=== PATIENT | female | born 1970 | race Caucasian/White ===

== ENCOUNTER 2018-03-26 11:30 | Emergency (ER) | payer OTHER ==
[~2018-03-26] VITALS: Ht 160 cm; Wt 69.0 kg
[~2018-03-26 11:30] MED LIST: BACTRIM DS TAB1 EACH PO; BENADRYL25 MG PO; CELEXA40 MG PO; DOXYCYCLINE 10100 MG PO; ERYTHROMYCIN E3.5 G3 OPHTHALMIC; FLEXERIL PO; HYDROCODONE-AP1 EAC6 PO; IBUPROFEN 800800 M1 PO; KEFLEX500 MG PO; NAPROSYN500 MG PO; NORCO 5-325 TA1 EAC1 PO; NORCO 5-325 TA1 EACH PO; ONDANSETRON HCL4 M2 PO; OXYCODONE HCL 55 MG PO; PREDNISONE 20 M20 MG PO; PROMETH-CODEIN 65 ML PO; PROVENTIL HFA6.7 G1 INH; TRAMADOL 50 MG50 MG PO
[2018-03-26] MEDS ORDERED: VITAMIN D2000 UNIT PO (11:52)
[2018-03-26] MEDS ORDERED: IRON325 PO (11:52)
[2018-03-26] MEDS ORDERED: VITAMIN C500 M1 PO (11:52)
[2018-03-26] MEDS ORDERED: PROMETHAZINE V473 ML PO (13:11)
[2018-03-26] MEDS ORDERED: PROAIR HFA8.5 GM INH (13:11)
[2018-03-26] MEDS ORDERED: ZPAK PO (13:11)
[2018-03-26] MEDS ORDERED: TESSALON PERLE100 MG PO (13:11)
[2018-03-26] MEDS ORDERED: MEDROLDOSEPACK PO (13:11)
[2018-03-26 13:26] VITALS: BP 161/101
== END 2018-03-26 13:27 | disposition home or self-care (01) ==
LOC: M.ERS 11:30
DX: J20.9 Acute bronchitis, unspecified (principal); F41.9 Anxiety disorder, unspecified; F32.9 Major depressive disorder, single episode, unspecified; Z85.3 Personal history of malignant neoplasm of breast; Z98.890 Other specified postprocedural states

== ENCOUNTER 2018-08-18 15:29 | Emergency (ER) | payer OTHER ==
[~2018-08-18] VITALS: Ht 157.5 cm; Wt 70.3 kg
[~2018-08-18 15:29] MED LIST changes: +IRON325 PO; +MEDROLDOSEPACK PO; +PROAIR HFA8.5 GM INH; +PROMETHAZINE V473 ML PO; +TESSALON PERLE100 MG PO; +VITAMIN C500 M1 PO; +VITAMIN D2000 UNIT PO; +ZPAK PO
[2018-08-18 16:22] LABS: ABSOLUTE BASOPHILS 0.1 thou/uL (0.0-0.2); ABSOLUTE EOSINOPHILS 0.1 thou/uL (0.0-0.7); ABSOLUTE LYMPHOCYTES 4.1 thou/uL (0.8-5.3); ABSOLUTE MONOCYTES 0.8 thou/uL (0.0-1.2); ABSOLUTE NEUTROPHILS 6.9 thou/uL (1.6-8.1); BASOPHILS 0.6 %; EOSINOPHILS 0.8 %; HEMATOCRIT 40.5 % (37.0-47.0); LYMPHOCYTES 34.3 %; MCH 35.8 pg (26.0-34.0); MCHC 34.6 g/dL (28.0-37.0); MCV 103.5 fL (80.0-100.0); MONOCYTES 6.5 %; MPV 6.8 fl. (7.2-11.1); NUCLEATED RBCS 0 /100WBC; PLATELET COUNT* 312 thou/uL (150-400); POLYS 57.8 %; RBC 3.91 mil/uL (4.20-5.00); RDW-CV 14.4 % (10.5-14.5); WBC 11.9 thou/uL (4.0-11.0)
[2018-08-18] MEDS ORDERED: TRAMADOL 50 MG50 MG PO (16:52)
[2018-08-18] MEDS ORDERED: KEFLEX500 M1 PO (16:52)
[2018-08-18] MEDS ORDERED: BACTRIM DS TAB1 EACH PO (16:52)
[2018-08-18 17:05] VITALS: BP 145/100
== END 2018-08-18 17:05 | disposition home or self-care (01) ==
LOC: M.ERS 15:29
PROVIDERS: Nurse Practitioner Psychiatric/Mental Health
DX: L03.114 Cellulitis of left upper limb (principal); F32.9 Major depressive disorder, single episode, unspecified; F41.9 Anxiety disorder, unspecified; Z98.890 Other specified postprocedural states; Z88.8 Allergy status to other drugs, medicaments and biological substances; Z85.3 Personal history of malignant neoplasm of breast

== ENCOUNTER 2018-10-02 15:57 | Inpatient (IN) | payer OTHER ==
[~2018-10-02] VITALS: Ht 160 cm; Wt 67.6 kg
--- NOTE | ~2018-10-02 | CON ---
[address] [address] CONSULTATION Name: TRACY SANDOVAL Room: [address] IN M.R.#: [id number] Admission: 10/02/18 Attend Phys: Jatinder Santo Discharge: 10/08/18 Date of : 74 Report #: [id number] THIS REPORT FOR: //name// CC: Dr. Vladislav PORTER physician/PCP Leandro Johnson DICTATED BY: Mel Zimmerman [facility] DATE OF SERVICE: 10/08/2018 Please note at the time of this dictation, the patient was seen and physically examined by myself. REASON FOR CONSULTATION: Pancreatitis. HISTORY OF PRESENT ILLNESS: This 48-year-old female who started having progressively lower abdominal pain, which began on the morning of admission and continued to worsen. With all of that, when she was admitted to the hospital, her lipase level was over [address] showed diffuse peripancreatic stranding with possible ileus versus enteritis. Since being admitted, she is tolerating now a soft low residue diet without any issues. Her abdominal discomfort is minimal and she is wanting to go home. The patient also mentions that she has had a 1-year history of diarrhea in which she would have some nocturnal urgency at night and then also upon arising where she may have 4 or 5 very small stools that were very mucousy in consistency, but no bright red blood or melena noted and if she ate then she would have very loose stools afterwards throughout the day. However, since being here in the hospital, her diarrhea has subsided and she has not had a bowel movement for several days or that urgency to go to the bathroom. MEDICATIONS FROM HOME: Vitamin D, ferrous sulfate and citalopram. ALLERGIES: INCLUDE TORADOL AND DARVOCET. FAMILY HISTORY: Negative for any GI or female cancers. SOCIAL HISTORY: She has smoked less than a pack a day for 32 years. Alcohol use regularly at least a shot a day and on other occasions significantly more than a shot a day. This has been going on since age 39. She denies any recreational drug use; however, she did test positive for benzos and meth. PAST MEDICAL HISTORY: Breast cancer in her 20s with lumpectomy and radiation, anxiety, depression. PAST SURGICAL HISTORY: D and C, , [place] [address] CONSULTATION Name: TRACY SANDOVAL Room: [address]#: [id number] Admission: 10/02/18 Attend Phys: Jatinder Santo Discharge: 10/08/18 Date of : 74 Report #: [id number] lumpectomy. REVIEW OF SYSTEMS: Twelve-point review of systems is essentially negative except what is mentioned in the HPI. PHYSICAL EXAMINATION: VITAL SIGNS: Temperature 36.7, pulse 58, respirations 16, blood pressure 154/87. HEART: Regular rate and rhythm. LUNGS: Clear. ABDOMEN: Soft, positive bowel sounds in all 4 quadrants with just very mild tenderness noted in the upper quadrants. LABORATORY DATA: Hemoglobin 11.3, white count 8.1, platelets 336. PT 10.8, INR 1.1. Lipase on admission was 1900, it is down to 901. GFR was 133. LFTs: Total bilirubin 0.2, alkaline phosphatase 140, ALT 26, AST is 22. CT on admission showed diffuse peripancreatic stranding and possible ileus versus enteritis which has since resolved. IMPRESSION: 1. Abdominal pain, resolving. 2. Acute pancreatitis, improving. 3. Elevated alkaline phosphatase. 4. Diarrhea for 1 year and has since resolved since admission. 5. Alcohol abuse. 6. History of breast cancer. PLAN: 1. We will check a GGTP today before she leaves. 2. Office visit and we will set her up for a colonoscopy as an outpatient. 3. No GI intervention at this time and okay for the patient to be discharged. Thank you for allowing us to participate in this patient's care. Please do not hesitate to call with any questions in regard to this consult. By: [id number] MD /demetra
[~2018-10-02 15:57] MED LIST changes: +KEFLEX500 M1 PO
[2018-10-02 16:11] VITALS: BP 156/98
[2018-10-02] MEDS ORDERED: CELEXA20 MG PO (16:13)
[2018-10-02 16:39] LABS: ABSOLUTE BASOPHILS 0.1 thou/uL (0.0-0.2); ABSOLUTE LYMPHOCYTES 1.6 thou/uL (0.8-5.3); ABSOLUTE MONOCYTES 0.5 thou/uL (0.0-1.2); ABSOLUTE NEUTROPHILS 5.8 thou/uL (1.6-8.1); BASOPHILS 0.7 %; EOSINOPHILS 0.3 %; HEMATOCRIT 39.7 % (37.0-47.0); HEMOGLOBIN 14.1 gm/dL (12.0-15.0); LYMPHOCYTES 19.6 %; MCH 36.9 pg (26.0-34.0); MCHC 35.4 g/dL (28.0-37.0); MCV 104.2 fL (80.0-100.0); MONOCYTES 6.5 %; MPV 7.1 fl. (7.2-11.1); NUCLEATED RBCS 0 /100WBC; PLATELET COUNT* 298 thou/uL (150-400); POLYS 72.9 %; RBC 3.81 mil/uL (4.20-5.00); RDW-CV 14.6 % (10.5-14.5); WBC 7.9 thou/uL (4.0-11.0)
[2018-10-02 16:48] LABS: CALCIUM 8.7 mg/dL (8.5-10.1); CREATININE 0.7 mg/dL (0.6-1.3)
[2018-10-02 16:52] LABS: POTASSIUM 2.6 mmol/L (3.5-5.1)
[2018-10-02 16:53] LABS: TOTAL BILIRUBIN 0.3 mg/dL (<0.1-1.0); TOTAL PROTEIN 6.2 g/dL (6.4-8.2)
[2018-10-02 17:20] LABS: SALICYLATE 12.7 mg/dL (2.8-20.0)
[2018-10-02 20:10] LABS: URINE BILIRUBIN NEGATIVE (Negative); URINE BLOOD NEGATIVE (Negative); URINE CLARITY CLEAR; URINE COLOR YELLOW; URINE GLUCOSE-RANDOM NEGATIVE (Negative); URINE KETONES NEGATIVE (Negative); URINE LEUKOCYTES-REFLEX NEGATIVE (Negative); URINE NITRITE-REFLEX NEGATIVE (Negative); URINE PROTEIN NEGATIVE (Negative); URINE SPECIFIC GRAVITY <= 1.005 (1.005-1.030); URINE UROBILINOGEN 0.2 E.U./dl (0.2-1.0)
[2018-10-02 20:19] LABS: AMP/METHAMP POSITIVE (Negative); BARBITURATES Negative (Negative); BENZODIAZEPINES POSITIVE (Negative); COCAINE Negative (Negative); METHADONE Negative (Negative); OPIATES Negative (Negative); PCP Negative (Negative); THC Negative (Negative)
[2018-10-02 21:15] VITALS: BP 147/85
[2018-10-02 21:30] VITALS: BP 148/100
[2018-10-03 02:31] LABS: INR 1.1; PROTIME 10.8 Seconds (9.20-11.50)
[2018-10-03 02:33] LABS: CALCIUM 7.4 mg/dL (8.5-10.1); MAGNESIUM 1.4 mg/dL (1.8-2.4); PHOSPHORUS* 2.6 mg/dL (2.5-4.9)
[2018-10-03 04:00] VITALS: BP 129/98
[2018-10-03 08:03] VITALS: BP 120/78
[2018-10-03 09:14] LABS: MAGNESIUM 2.2 mg/dL (1.8-2.4); POTASSIUM 3.5 mmol/L (3.5-5.1)
--- NOTE | 2018-10-03 11:11 | EKG ---
[place] [address] ELECTROCARDIOGRAM REPORT Name: TRACY SANDOVAL Room: [address] ADM IN .R.#: [id number] Admission: 10/02/18 Attend Phys: Jatinder Santo Discharge: Date of : 74 Report #: [id number] THIS REPORT FOR: //name// [facility] ED Test Date: 2018-10-02 Test Time: 17:58:46 Pat Name: TRACY SANDOVAL Department: Room: [facility] Gender: F Roof Tiler: JONATHON : 1970 Requested By: Sherry Carey Order Number: [id number] MD: Michoacano Dumont Measurements Intervals [place] Rate: 90 P: 61 [place]: 157 QRS: 20 QRSD: 102 T: 55 QT: 408 QTc: 500 Interpretive Statements Sinus rhythm Borderline prolonged QT interval No previous ECG available for comparison Electronically Signed On 10-03-2018 11:11:31 CDT by Michoacano Dumont [email or web address] <ELECTRONICALLY SIGNED> By: Michoacano Dumont MD, [facility] 10/03/18 1111 1758 [id number] Michoacano Dumont MD, FACC /EPI
[2018-10-03 12:23] VITALS: BP 137/97
[2018-10-03 16:19] VITALS: BP 135/75
[2018-10-03 19:50] VITALS: BP 144/91
--- NOTE | 2018-10-03 20:47 | H ---
[address] [address] HISTORY AND PHYSICAL Name: TRACY SANDOVAL Room: [address] IN .#: [id number] Admission: 10/02/18 Attend Phys: Jatinder Santo Discharge: Date of : 74 Report #: [id number] THIS REPORT FOR: //name// CC: GERMAN physician/PCP Leandro Johnson DATE OF SERVICE: 10/03/2018 CHIEF COMPLAINT: Abdominal pain. HISTORY OF PRESENT ILLNESS: The patient is a 48-year-old female who has history of alcohol abuse and drinks daily. She works as a human resources professional. She tells me that she drinks a shot of hard liquor every day. She does not consider herself alcoholic but now rethinking that. She complained of abdominal pain that started yesterday. It was bad enough that she did not go to work. She finally came into the Emergency Department, had labs drawn and noted to have elevated lipase, so she was admitted for pancreatitis. She continues to have some abdominal pain. Pain medication is working for her right now. PAST MEDICAL HISTORY: She has breast cancer and had a biopsy and had chemo and radiation. Denies any history of hypertension, diabetes, CAD. PAST SURGICAL HISTORY: section, breast biopsy. FAMILY HISTORY: Hypoglycemia. There is no history of CAD, hypertension in the family. SOCIAL HISTORY: The patient lives by herself. She works in the [employer] as a human resources professional. She does drink alcohol every day. She also smokes a pack of cigarettes per day. REVIEW OF SYSTEMS: The patient denies any fever or chills. She denies any coughing or cold symptoms. She denies any nausea or vomiting. She does have abdominal pains and as mentioned, she has no bloody stools, no hematemesis. A 12-point review of system unremarkable as mentioned above. MEDICATIONS: Medications that she takes include ferrous sulfate 325 mg daily, Citalopram 20 mg daily. ALLERGIES: DARVOCET and KETOROLAC. PHYSICAL EXAMINATION: VITAL SIGNS: Temperature is 36.7, heart rate of 71, respiratory rate 16, blood pressure 137/97, 95% on room air. GENERAL: The patient is alert. She is oriented x 3. Initially, she was sleepy, but arousable and then we started talking and she was more awake, not in acute respiratory distress. HEENT: Normocephalic, atraumatic. Nares patent. Clear pharynx. NECK: Supple neck. No lymphadenopathy. CARDIOVASCULAR: [place] [address] HISTORY AND PHYSICAL Name: TRACY SANDOVAL Room: [address] IN [facility]#: [id number] Admission: 10/02/18 Attend Phys: Jatinder Santo Discharge: Date of : 74 Report #: [id number] rate, regular rhythm. No murmurs noted. RESPIRATORY: Clear to auscultation bilaterally. No crackles. GASTROINTESTINAL: Abdomen is soft. She does have tenderness in the epigastric area. GENITOURINARY: Deferred. MUSCULOSKELETAL: Fair strength. NEUROLOGIC: Grossly normal. PSYCHIATRIC: The patient is calm and good. LABORATORY DATA: Reviewed and CBC showed a white count of 7.9, hemoglobin is 14.1, platelet is 298,000, hematocrit is 39.7, MCV is 104.2. INR is 1.1. Chemistry showed sodium of 139, potassium is 3.5, chloride 101, bicarbonate is 23, anion gap 15, BUN 7, creatinine 7, glucose is 134, lactic acid is 1.8, calcium 7.4, phosphorus 2.6, magnesium is 2.2, GGT is 9.09, AST 87, ALT 73, alkaline phosphatase is 238. Ammonia level is 18. Troponin is 0.06, total protein is 6.2, albumin is 3. Amylase 76. Lipase is 1943. Vitamin B12 is 83. Folate 16.1. TSH is 2.535, free T4 0.72, free T3 3.1. UA is negative. Toxicology showed acetaminophen level low, positive amphetamine and benzos. IMAGING STUDIES: Abdomen CAT scan showed findings suggestive of acute pancreatitis. No peripancreatic fluid collections identified. These findings are suggestive of mild small bowel ileus versus mild nonspecific enteritis, small left ovarian cyst, hepatomegaly with diffuse hepatic steatosis. IMPRESSION: The patient is a 48-year-old female admitted in the hospital for 1. Acute pancreatitis secondary to alcohol use. 2. Alcohol withdrawal. 3. 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 4. Hypomagnesemia. 5. Possible polysubstance abuse. PLAN: The patient will be admitted. I expect this patient is going to be here more than 2 midnights. We will continue n.p.o. as patient is still having abdominal pain. Continue pain meds. We will continue to hydrate her. We will follow her labs in the morning. She denies any illicit drug use; however, she was positive for benzos and methamphetamine on admission. Discussed with the patient regarding code status and she is a full code. <ELECTRONICALLY SIGNED> By: Jamaica Figueredo MD 10/03/18 2047 1229 [id number] Figueredo MD /demetra
[2018-10-04] VITALS: BP 124/76
[2018-10-04 04:00] VITALS: BP 127/79
[2018-10-04 05:02] LABS: ALBUMIN 2.1 g/dL (3.4-5.0); CREATININE 0.5 mg/dL (0.6-1.3); TOTAL BILIRUBIN 0.5 mg/dL (<0.1-1.0); TOTAL PROTEIN 4.9 g/dL (6.4-8.2)
[2018-10-04 07:30] VITALS: BP 147/88
[2018-10-04 12:00] VITALS: BP 133/88
[2018-10-04 18:16] VITALS: BP 128/92
[2018-10-04 20:00] VITALS: BP 136/98
[2018-10-05] VITALS: BP 142/99
[2018-10-05 04:00] VITALS: BP 133/92
[2018-10-05 07:50] VITALS: BP 159/98
[2018-10-05 12:00] VITALS: BP 148/92
[2018-10-05 17:17] VITALS: BP 132/84
[2018-10-05 20:00] VITALS: BP 106/98
[2018-10-06] VITALS: BP 168/98
[2018-10-06 04:00] VITALS: BP 137/80
[2018-10-06 05:39] LABS: ALBUMIN 2.4 g/dL (3.4-5.0); CALCIUM 8.1 mg/dL (8.5-10.1); CREATININE 0.5 mg/dL (0.6-1.3); POTASSIUM 3.7 mmol/L (3.5-5.1); TOTAL BILIRUBIN 0.3 mg/dL (<0.1-1.0); TOTAL PROTEIN 5.4 g/dL (6.4-8.2)
[2018-10-06 08:00] VITALS: BP 148/97
[2018-10-06 17:31] VITALS: BP 142/88
[2018-10-06 20:00] VITALS: BP 148/81
[2018-10-07] VITALS: BP 158/98
[2018-10-07 04:00] VITALS: BP 121/85
[2018-10-07 05:10] LABS: HEMATOCRIT 31.3 % (37.0-47.0); HEMOGLOBIN 10.9 gm/dL (12.0-15.0); MCH 36.5 pg (26.0-34.0); MCHC 34.8 g/dL (28.0-37.0); MCV 104.8 fL (80.0-100.0); MPV 7.4 fl. (7.2-11.1); RBC 2.99 mil/uL (4.20-5.00); RDW-CV 14.5 % (10.5-14.5); WBC 8.7 thou/uL (4.0-11.0)
[2018-10-07 05:25] LABS: ALBUMIN 2.1 g/dL (3.4-5.0); CALCIUM 8.4 mg/dL (8.5-10.1); CREATININE 0.6 mg/dL (0.6-1.3); MAGNESIUM 1.7 mg/dL (1.8-2.4); POTASSIUM 3.2 mmol/L (3.5-5.1); TOTAL BILIRUBIN 0.3 mg/dL (<0.1-1.0); TOTAL PROTEIN 5.6 g/dL (6.4-8.2)
[2018-10-07 07:30] VITALS: BP 173/97
[2018-10-07 13:00] VITALS: BP 156/107
[2018-10-07 18:09] LABS: MAGNESIUM 1.9 mg/dL (1.8-2.4); POTASSIUM 3.5 mmol/L (3.5-5.1)
[2018-10-07 19:40] VITALS: BP 157/96
[2018-10-08] VITALS: BP 158/98
[2018-10-08 04:09] VITALS: BP 146/87
[2018-10-08 05:06] LABS: HEMATOCRIT 32.9 % (37.0-47.0); HEMOGLOBIN 11.3 gm/dL (12.0-15.0); MCH 36.5 pg (26.0-34.0); MCHC 34.3 g/dL (28.0-37.0); MCV 106.5 fL (80.0-100.0); MPV 7.5 fl. (7.2-11.1); RBC 3.09 mil/uL (4.20-5.00); RDW-CV 14.7 % (10.5-14.5); WBC 8.1 thou/uL (4.0-11.0)
[2018-10-08 05:15] LABS: ALBUMIN 2.1 g/dL (3.4-5.0); CALCIUM 8.7 mg/dL (8.5-10.1); CREATININE 0.5 mg/dL (0.6-1.3); MAGNESIUM 1.8 mg/dL (1.8-2.4); POTASSIUM 3.7 mmol/L (3.5-5.1); TOTAL BILIRUBIN 0.2 mg/dL (<0.1-1.0); TOTAL PROTEIN 5.7 g/dL (6.4-8.2)
[2018-10-08 08:45] VITALS: BP 154/87
[2018-10-08 12:00] VITALS: BP 150/93; BP 154/87
[2018-10-08] MEDS ORDERED: PEPCID20 MG PO (12:06)
[2018-10-08] MEDS ORDERED: NICOTINE TRANSD14 M1 TRANSDERM (12:11)
[2018-10-08] MEDS ORDERED: [UNRECOGNIZED DRUG - OTHER] PO (12:12)
[2018-10-08] MEDS ORDERED: VITAMIN B-1100 M1 PO (12:13)
== END 2018-10-08 13:00 | disposition home or self-care (01) | DRG 438 ==
LOC: M.ERS 15:57 → M.TBA-ER 18:22 → M.2W 18:22
PROVIDERS: Family Medicine; Internal Medicine; Nurse Practitioner Family; Nurse Practitioner Psychiatric/Mental Health; ADMIT Internal Medicine
DX: K85.20 Alcohol induced acute pancreatitis without necrosis or infection (principal); E43 Unspecified severe protein-calorie malnutrition; F10.239 Alcohol dependence with withdrawal, unspecified; K56.7 Ileus, unspecified; K52.9 Noninfective gastroenteritis and colitis, unspecified; E87.6 Hypokalemia; F43.10 Post-traumatic stress disorder, unspecified; F32.9 Major depressive disorder, single episode, unspecified; E83.42 Hypomagnesemia; F41.9 Anxiety disorder, unspecified; I25.10 Atherosclerotic heart disease of native coronary artery without angina pectoris; Y90.9 Presence of alcohol in blood, level not specified; Z98.891 History of uterine scar from previous surgery; Z85.3 Personal history of malignant neoplasm of breast; Z86.14 Personal history of Methicillin resistant Staphylococcus aureus infection; Z88.8 Allergy status to other drugs, medicaments and biological substances; Z92.3 Personal history of irradiation; Z92.21 Personal history of antineoplastic chemotherapy; Z68.26 Body mass index [BMI] 26.0-26.9, adult

== ENCOUNTER 2018-12-21 11:29 | Emergency (ER) | payer OTHER ==
[~2018-12-21] VITALS: Ht 157.5 cm; Wt 64.1 kg
[~2018-12-21 11:29] MED LIST changes: +CELEXA20 MG PO; +NICOTINE TRANSD14 M1 TRANSDERM; +PEPCID20 MG PO; +VITAMIN B-1100 M1 PO; +[UNRECOGNIZED DRUG - OTHER] PO
[2018-12-21 12:11] LABS: ABSOLUTE EOSINOPHILS 0.1 thou/uL (0.0-0.7); ABSOLUTE LYMPHOCYTES 2.6 thou/uL (0.8-5.3); ABSOLUTE MONOCYTES 0.5 thou/uL (0.0-1.2); ABSOLUTE NEUTROPHILS 5.9 thou/uL (1.6-8.1); BASOPHILS 0.4 %; EOSINOPHILS 0.8 %; HEMATOCRIT 40.8 % (37.0-47.0); HEMOGLOBIN 13.9 gm/dL (12.0-15.0); LYMPHOCYTES 28.6 %; MCHC 34.1 g/dL (28.0-37.0); MCV 99.7 fL (80.0-100.0); NUCLEATED RBCS 0 /100WBC; PLATELET COUNT* 322 thou/uL (150-400); POLYS 64.2 %; RBC 4.09 mil/uL (4.20-5.00); RDW-CV 15.9 % (10.5-14.5); WBC 9.1 thou/uL (4.0-11.0)
[2018-12-21 12:18] LABS: ANION GAP 10 mmol/L (7-16); APTT 25.6 Seconds (25.0-31.3); BUN 9 mg/dL (7-18); CALCIUM 7.9 mg/dL (8.5-10.1); CHLORIDE 108 mmol/L (98-107); CO2 26 mmol/L (21-32); CREATININE 0.6 mg/dL (0.6-1.3); GLUCOSE 111 mg/dL (70-99); INR 1.1; PROTIME 11.4 Seconds (9.20-11.50); SODIUM 144 mmol/L (136-145)
[2018-12-21 12:27] LABS: ALBUMIN 2.9 g/dL (3.4-5.0); ALKALINE PHOSPHATASE 90 U/L (46-116); LIPASE 87 U/L (73-393); SGOT 36 U/L (15-37); SGPT 37 U/L (30-65); TOTAL BILIRUBIN 0.2 mg/dL (<0.1-1.0); TROPONIN-I LEVEL <0.06 ng/mL (<0.06)
[2018-12-21] MEDS ORDERED: ONDANSETRON HCL4 M2 PO (12:55)
[2018-12-21] MEDS ORDERED: BACTRIM DS TAB1 EACH PO (12:58)
[2018-12-21] MEDS ORDERED: KEFLEX500 M1 PO (12:58)
[2018-12-21 13:50] VITALS: BP 127/80
--- NOTE | 2018-12-23 09:29 | EKG ---
[place] [address] ELECTROCARDIOGRAM REPORT Name: TRACY SANDOVAL Room: [facility]#: [id number] Admission: 12/21/18 Attend Phys: Discharge: 12/21/18 Date of : 74 Report #: [id number] THIS REPORT FOR: //name// [facility] ED Test Date: 2018-12-21 Test Time: 12:09:46 Pat Name: TRACY SANDOVAL Department: Room: Gender: F Legal Summer Intern: Graham OLVERA : 1970 Requested By: Sherry Carey Order Number: [id number] MD: Antony Le Measurements Intervals [place] Rate: 84 P: 58 FL: 145 QRS: -6 QRSD: 100 T: 52 QT: 403 QTc: 477 Interpretive Statements Sinus rhythm Compared to ECG 10/02/2018 17:58:46 No significant changes Electronically Signed On 12-23-2018 9:29:05 CDT by Antony Le [email or web address] <ELECTRONICALLY SIGNED> By: Antony Le MD, [facility] 12/23/18 0929 1209 1209 Antony Le MD, FACC /EPI
== END 2018-12-21 13:50 | disposition home or self-care (01) ==
LOC: M.ERS 11:29
PROVIDERS: Nurse Practitioner Family
DX: F10.220 Alcohol dependence with intoxication, uncomplicated (principal); R10.9 Unspecified abdominal pain; L03.114 Cellulitis of left upper limb; E87.6 Hypokalemia; R94.5 Abnormal results of liver function studies; F41.9 Anxiety disorder, unspecified; F32.9 Major depressive disorder, single episode, unspecified; M19.90 Unspecified osteoarthritis, unspecified site; Z85.3 Personal history of malignant neoplasm of breast; Z86.14 Personal history of Methicillin resistant Staphylococcus aureus infection; Z98.890 Other specified postprocedural states; Z88.6 Allergy status to analgesic agent

== ENCOUNTER 2019-01-08 17:38 | Emergency (ER) | payer OTHER ==
[~2019-01-08] VITALS: Ht 157.5 cm; Wt 59.0 kg
[2019-01-08] MEDS ORDERED: ADDERALL 30 MG30 MG PO (17:47)
[2019-01-08] MEDS ORDERED: KLOR-CON 1010 MEQ PO (17:48)
[2019-01-08 18:56] VITALS: BP 148/88
== END 2019-01-08 18:58 | disposition home or self-care (01) ==
LOC: M.ERS 17:38
DX: A54.9 Gonococcal infection, unspecified (principal); M19.90 Unspecified osteoarthritis, unspecified site; F41.9 Anxiety disorder, unspecified; F32.9 Major depressive disorder, single episode, unspecified; F17.200 Nicotine dependence, unspecified, uncomplicated; Z86.14 Personal history of Methicillin resistant Staphylococcus aureus infection; Z88.6 Allergy status to analgesic agent; Z85.3 Personal history of malignant neoplasm of breast; Z98.890 Other specified postprocedural states

== ENCOUNTER 2019-02-05 17:24 | Emergency (ER) | payer OTHER ==
[~2019-02-05] VITALS: Ht 157.5 cm; Wt 56.7 kg
[~2019-02-05 17:24] MED LIST changes: +ADDERALL 30 MG30 MG PO; +KLOR-CON 1010 MEQ PO
[2019-02-05] MEDS ORDERED: AUGMENTIN 875-1 EACH PO (21:10)
[2019-02-05] MEDS ORDERED: IMOVAX RABIE2.5 UNI1 IM (21:10)
[2019-02-05 21:32] VITALS: BP 145/99
== END 2019-02-05 21:44 | disposition home or self-care (01) ==
LOC: M.ERS 17:24
DX: M70.22 Olecranon bursitis, left elbow (principal); S50.312A Abrasion of left elbow, initial encounter; S40.811A Abrasion of right upper arm, initial encounter; S60.311A Abrasion of right thumb, initial encounter; S60.410A Abrasion of right index finger, initial encounter; S80.812A Abrasion, left lower leg, initial encounter; S80.811A Abrasion, right lower leg, initial encounter; L53.9 Erythematous condition, unspecified; F17.200 Nicotine dependence, unspecified, uncomplicated; F41.9 Anxiety disorder, unspecified; F32.9 Major depressive disorder, single episode, unspecified; Z88.6 Allergy status to analgesic agent; Z88.8 Allergy status to other drugs, medicaments and biological substances; Z85.3 Personal history of malignant neoplasm of breast; Z98.890 Other specified postprocedural states; W54.0XXA Bitten by dog, initial encounter; Y92.89 Other specified places as the place of occurrence of the external cause; Y93.89 Activity, other specified; Y99.8 Other external cause status

== ENCOUNTER 2019-02-10 08:31 | Emergency (ER) | payer OTHER ==
[~2019-02-10] VITALS: Ht 157.5 cm; Wt 59.0 kg
[~2019-02-10 08:31] MED LIST changes: +AUGMENTIN 875-1 EACH PO; +IMOVAX RABIE2.5 UNI1 IM
[2019-02-10 09:19] LABS: HEMATOCRIT 34.1 % (37.0-47.0); HEMOGLOBIN 11.7 gm/dL (12.0-15.0); MCH 34.6 pg (26.0-34.0); MCHC 34.4 g/dL (28.0-37.0); MCV 100.4 fL (80.0-100.0); MPV 8.2 fl. (7.2-11.1); NUCLEATED RBCS 0 /100WBC; PLATELET COUNT* 146 thou/uL (150-400); RBC 3.39 mil/uL (4.20-5.00); RDW-CV 13.5 % (10.5-14.5); WBC 16.2 thou/uL (4.0-11.0)
[2019-02-10 09:22] LABS: BE -2.3 mmol/L (-2 to +3); PCO2 29.1 mmHg (35.0-45.0); PO2 101.6 mmHg (75.0-100.0); pH 7.464 (7.340-7.450)
[2019-02-10 09:23] LABS: CALCIUM 8.9 mg/dL (8.5-10.1); CREATININE 1.2 mg/dL (0.6-1.3)
[2019-02-10 09:24] LABS: POTASSIUM 2.9 mmol/L (3.5-5.1)
[2019-02-10 09:28] LABS: ALBUMIN 2.1 g/dL (3.4-5.0); TOTAL BILIRUBIN 0.6 mg/dL (<0.1-1.0); TOTAL PROTEIN 6.1 g/dL (6.4-8.2)
[2019-02-10 09:40] LABS: INFLUENZA A ANTIGEN Negative (Negative); INFLUENZA B ANTIGEN Negative (Negative)
[2019-02-10 09:45] LABS: ABSOLUTE LYMPHOCYTES 0.6 thou/uL (0.8-5.3); ABSOLUTE MONOCYTES 0.6 thou/uL (0.0-1.2); ABSOLUTE NEUTROPHILS 14.9 thou/uL (1.6-8.1); PLATELET ESTIMATE DECREASED
[2019-02-10 09:46] LABS: MACROCYTES 3+
[2019-02-10 09:47] LABS: TOXIC GRANULATION 1+
[2019-02-10 10:32] LABS: AMYLASE 12 U/L (25-115); LIPASE 37 U/L (73-393)
[2019-02-10] MEDS ORDERED: PHENERGAN 25 MG25 M1 PO (12:13)
[2019-02-10] MEDS ORDERED: AUGMENTIN 500-1 EACH PO (12:13)
[2019-02-10] MEDS ORDERED: ACETAMINOPHEN-1 EAC2 PO (12:13)
[2019-02-10 12:51] VITALS: BP 116/64
== END 2019-02-10 12:54 | disposition home or self-care (01) ==
LOC: M.ERS 08:31
PROVIDERS: Personal Emergency Response Attendant
DX: J40 Bronchitis, not specified as acute or chronic (principal); R19.7 Diarrhea, unspecified; F32.9 Major depressive disorder, single episode, unspecified; F41.9 Anxiety disorder, unspecified; F17.210 Nicotine dependence, cigarettes, uncomplicated; Z85.3 Personal history of malignant neoplasm of breast; Z98.890 Other specified postprocedural states; Z86.14 Personal history of Methicillin resistant Staphylococcus aureus infection; Z88.6 Allergy status to analgesic agent

== ENCOUNTER 2019-08-24 16:01 | Observation (INO) | payer OTHER ==
[~2019-08-24] VITALS: Ht 157.5 cm; Wt 61.7 kg
[~2019-08-24 16:01] MED LIST changes: +ACETAMINOPHEN-1 EAC2 PO; +AUGMENTIN 500-1 EACH PO; +PHENERGAN 25 MG25 M1 PO
[2019-08-24 16:15] VITALS: BP 146/84
[2019-08-24 16:44] LABS: HEMATOCRIT 32.5 % (37.0-47.0); MCH 33.8 pg (26.0-34.0); MCHC 33.7 g/dL (28.0-37.0); MCV 100.4 fL (80.0-100.0); MPV 6.8 fl. (7.2-11.1); NUCLEATED RBCS 0 /100WBC; RBC 3.24 mil/uL (4.20-5.00); RDW-CV 15.7 % (10.5-14.5); WBC 13.9 thou/uL (4.0-11.0)
[2019-08-24 16:47] LABS: PLATELET COUNT* 1193 thou/uL (150-400)
[2019-08-24 16:53] LABS: URINE BILIRUBIN NEGATIVE (Negative); URINE BLOOD NEGATIVE (Negative); URINE CLARITY CLEAR; URINE COLOR YELLOW; URINE GLUCOSE-RANDOM NEGATIVE (Negative); URINE KETONES NEGATIVE (Negative); URINE LEUKOCYTES-REFLEX NEGATIVE (Negative); URINE NITRITE-REFLEX NEGATIVE (Negative); URINE PROTEIN NEGATIVE (Negative); URINE UROBILINOGEN 0.2 E.U./dl (0.2-1.0)
[2019-08-24 16:55] LABS: CALCIUM 8.9 mg/dL (8.5-10.1); CREATININE 0.6 mg/dL (0.6-1.3); POTASSIUM 3.3 mmol/L (3.5-5.1)
[2019-08-24 16:59] LABS: ALBUMIN 2.6 g/dL (3.4-5.0); TOTAL BILIRUBIN 0.1 mg/dL (<0.1-1.0); TOTAL PROTEIN 7.1 g/dL (6.4-8.2)
[2019-08-24 17:15] LABS: MAGNESIUM 1.8 mg/dL (1.8-2.4); PHOSPHORUS* 3.4 mg/dL (2.5-4.9)
[2019-08-24 17:17] LABS: ABSOLUTE EOSINOPHILS 0.7 thou/uL (0.0-0.7); ABSOLUTE LYMPHOCYTES 2.9 thou/uL (0.8-5.3); ABSOLUTE MONOCYTES 0.8 thou/uL (0.0-1.2); ABSOLUTE NEUTROPHILS 9.5 thou/uL (1.6-8.1)
[2019-08-24 17:18] LABS: PLATELET ESTIMATE INCREASED
[2019-08-24 17:19] LABS: ANISOCYTOSIS Occasional; POLYCHROMASIA Occasional
[2019-08-24 17:20] LABS: AMP/METHAMP POSITIVE (Negative); BARBITURATES Negative (Negative); BENZODIAZEPINES POSITIVE (Negative); COCAINE Negative (Negative); METHADONE Negative (Negative); OPIATES Negative (Negative); PCP Negative (Negative); THC Negative (Negative)
[2019-08-24 17:20] LABS: HYPOCHROMASIA Occasional; LARGE PLATELETS OCCASIONAL
[2019-08-24 17:30] LABS: PROTIME 10.6 Seconds (9.20-11.50)
[2019-08-24 17:31] LABS: APTT 39.1 Seconds (25.0-31.3)
[2019-08-24 20:30] VITALS: BP 141/93; BP 145/88
[2019-08-25] VITALS: BP 107/69; BP 130/88
[2019-08-25 03:59] VITALS: BP 135/87
[2019-08-25 04:40] LABS: ABSOLUTE BASOPHILS 0.1 thou/uL (0.0-0.2); ABSOLUTE EOSINOPHILS 0.4 thou/uL (0.0-0.7); ABSOLUTE LYMPHOCYTES 2.6 thou/uL (0.8-5.3); ABSOLUTE MONOCYTES 0.8 thou/uL (0.0-1.2); BASOPHILS 0.6 %; EOSINOPHILS 3.5 %; HEMATOCRIT 27.4 % (37.0-47.0); HEMOGLOBIN 9.3 gm/dL (12.0-15.0); LYMPHOCYTES 24.3 %; MCH 34.1 pg (26.0-34.0); MCV 100.1 fL (80.0-100.0); MONOCYTES 7.4 %; MPV 7.2 fl. (7.2-11.1); NUCLEATED RBCS 0 /100WBC; POLYS 64.2 %; RBC 2.74 mil/uL (4.20-5.00); RDW-CV 15.6 % (10.5-14.5); WBC 10.8 thou/uL (4.0-11.0)
[2019-08-25 04:43] LABS: PLATELET COUNT* 931 thou/uL (150-400)
[2019-08-25 04:47] LABS: ALBUMIN 2.1 g/dL (3.4-5.0); CALCIUM 7.9 mg/dL (8.5-10.1); CREATININE 0.6 mg/dL (0.6-1.3); POTASSIUM 3.3 mmol/L (3.5-5.1); TOTAL BILIRUBIN 0.1 mg/dL (<0.1-1.0); TOTAL PROTEIN 5.6 g/dL (6.4-8.2)
[2019-08-25 05:24] LABS: PREALBUMIN 18.4 mg/dL (18.0-35.7)
--- NOTE | 2019-08-25 07:45 | NUR ---
RECEIVED REPORT FROM ENDLESS BELT FINISHER GAVI AT 2016. PT ARRIVED TO UNIT AT 2029. NURSING ASSESSMENT COMPLETED. PT C/O ABDOMINAL PAIN. PRN PAIN MEDICATION ADMINISTERED PER EMAR. IV FLUIDS INFUSING. CALL LIGHT WITHIN REACH. NEGATIVE SEPSIS SCREENING.
[2019-08-25 08:06] VITALS: BP 174/99
--- NOTE | 2019-08-25 09:20 | NUR ---
ASSUMED CARE OF PT THIS AM AROUND 07- PARACHUTE ACCESSORIES ATTACHER IN PLACE ORDERED, TRACING SR- UPON ASSESSMENT PT NOTED TO BE RESTING IN BED, WATCHING TV- PT A&O X4- CONT OF B/B- UP AD-SHAHZAD IN ROOM, STEADY GAIT NOTED- VSS, O2 SAT 98% ON RA- ABD SOFT/ROUND/NON-TENDER, BS X4 QUADS- MIDLINE ABD INCISSION NOTED WELL APPROIMATED AND HEALING WELL- LAST BM REPORTED 08/24/19- IV NOTED TO RIGHT AC INTACT AND SL, IV NOTED TO RIGHT FA INTACT WITH IVF INFUSSING PRESCRIBED-IV ABT GIVEN PRESCRIBED THIS AM- ROUNDED THIS AM AND OKAY WITH PT D/C TODAY WITH PO ABT AND F/U OP PPER PT REQUEST TO D/C; NO SURGERY INDICATED AT THIS TIME- PT DENIES ANY C/O PAIN/DISCOMFORT AT THIS TIME- CALL LIGHT AND PERSONAL BELONGINGS WITH IN REACH- PT MAKES NEEDS KNOWN- ALL NEEDS MET AT THIS TIME- WCTM
--- NOTE | 2019-08-25 11:03 | EKG ---
[place] [address] ELECTROCARDIOGRAM REPORT Name: TRACY SANDOVAL Room: [address] ADM IN .R.#: [id number] Admission: 08/24/19 Attend Phys: Jerry Roman, Discharge: Date of : 74 Date of Service: 08/24/191928 Report #: [id number] THIS REPORT FOR: //name// [facility] ED Test Date: 2019-08-24 Test Time: 19:29:44 Pat Name: TRACY SANDOVAL Department: Room: [facility] Gender: F Sanitation Inspector: LEDY : 1970 Requested By: Sherry Carey Order Number: [id number] : Matthew Calhoun Measurements Intervals [place] Rate: 93 P: 51 SC: 138 QRS: 9 QRSD: 92 T: 36 QT: 394 QTc: 491 Interpretive Statements Sinus rhythm Borderline prolonged QT interval Compared to ECG 12/21/2018 12:09:46 No significant changes Electronically Signed On 08-25-2019 11:01:30 CDT by Matthew Calhoun [email or web address] <ELECTRONICALLY SIGNED> By: Matthew Calhoun MD, [facility] 08/25/19 1101 28 28 Matthew Calhoun MD, [facility] /EPI
[2019-08-25] MEDS ORDERED: AUGMENTIN 875-1 EACH PO (11:15)
[2019-08-25 11:16] VITALS: BP 174/99
[2019-08-25 12:00] VITALS: BP 148/92
--- NOTE | 2019-08-26 11:31 | CON ---
[address] [address] CONSULTATION Name: TRACY SANDOVAL Room: [address] Rocío Rodriguez#: [id number] Admission: 08/24/19 Attend Phys: Jerry Roman MD Discharge: 08/25/19 Date of : 74 Report #: [id number] THIS REPORT FOR: //name// cc: GERMAN Cisneros family physician/PCP GERMAN Cisneros family physician/PCP ~ THIS REPORT FOR: //name// CC: Jerry PORTER physician/PCP Francisco Hooker DATE OF SERVICE: 08/25/2019 INFECTIOUS DISEASE CONSULTATION ATTENDING PHYSICIAN: Jerry Roman MD REASON FOR EVALUATION: Concern about postoperative infection, specifically abscess. Patient with recent surgery for gastric ulcer perforation. HISTORY OF PRESENT ILLNESS: Chart reviewed, patient examined. This is a 49-year-old woman with fairly significant medical history given her age including breast cancer, history of pancreatitis I suspect due to ethanol, and more recently perforated peptic ulcer. She was hospitalized for 9 days earlier this month and did undergo operative procedure and is returning for visit. She was noted discomfort and some hardness in her abdomen. The ely were removed. She was sent for CT. Results of CT, which prompted the admission, showed fluid collection and some rim enhancement in the abdomen near the abdominal wall, just inferior to right hepatic lobe measuring 5 x 2 x 2.2 x 3.5 cm. There was some inflammation of the right upper quadrant mesentery and some mild ascites as well. Due to concern about postoperative infection, she was admitted. Other pertinent labs showed an unremarkable urinalysis. Liver functions were within the normal range. Alcohol level was measurable. Positive urine drug screen for amphetamine, methamphetamine as well as benzodiazepine. White count was elevated to a mild degree to 13.9; however, she had a marked elevation of her platelets to 1193. Lactic acid 0.8. Blood cultures are sterile thus far. She was empirically started on piperacillin and tazobactam. On questioning, she denies any recent fevers or chills. Appetite has generally been fairly good. No pulmonary or gastrointestinal related complaints other than the abdominal pain and discomfort. ALLERGIES: PROPOXYPHENE, TORADOL. MEDICATIONS: Include: 1. Aspirin. 2. [place] [address] CONSULTATION Name: TRACY SANDOVAL Room: [address]#: [id number] Admission: 08/24/19 Attend Phys: Jerry Roman MD Discharge: 08/25/19 Date of : 74 Report #: [id number] 3. Hydrocodone. 4. Zosyn. 5. Nicotine. 6. Enoxaparin. 7. P.r.n. analgesics and antiemetics. PAST MEDICAL HISTORY: As described above: 1. History of breast cancer. 2. Anxiety. 3. Depression. 4. Degenerative bone disease. 5. Pancreatitis. 6. History of sexually transmitted illness. 7. Recent peptic ulcer perforation with repair. SOCIAL HISTORY: Smokes a pack a day for the last 25 years. Denies illicit drug use. She is known to drink ethanol, perhaps to excess. FAMILY HISTORY: Noncontributory. REVIEW OF SYSTEMS: As above. PHYSICAL EXAMINATION: GENERAL: She is alert, cooperative, appropriate. She is somewhat anxious. She is in mild to moderate distress. She is pleading to go home, appears to be somewhat undernourished. VITAL SIGNS: Temperature 97.8, pulse 86, respirations 18, blood pressure 174/99. SKIN: Warm, dry. No rashes. HEENT: Normocephalic. Extraocular muscles are intact. NECK: Supple. LUNGS: Somewhat diminished. Otherwise clear breath sounds. HEART: Regular. I do not appreciate any murmur. ABDOMEN: She has got a longitudinally oriented midline incision that appears to be well approximated. There is no evidence of drainage. There is really no evidence of surface inflammation. Some mild tenderness. There are no peritoneal signs. GENITOURINARY: Deferred. RECTAL: Deferred. LABORATORY DATA: As described above. CRP 33.7. Prealbumin 18.4. Electrolytes: Sodium 141, potassium 3.3, chloride 107, bicarbonate is 26, anion gap of 8, BUN and creatinine 9 and 0.6. LFTs are unremarkable. Albumin of 2.1. Total protein 5.6. Estimated GFR 107. CBC: White count 10.8, H and H 9.3 and 27.4, platelets of 931, it is down from 1193. Differential [place] [address] CONSULTATION Name: KARENEMILYTRACY Room: [address]#: [id number] Admission: 08/24/19 Attend Phys: Jerry Roman MD Discharge: 08/25/19 Date of : 74 Report #: [id number] ASSESSMENT AND PLAN: Postoperative fluid collection, the evidence is mixed. Strong clinical evidence favors abscess at this point, noted surgery was okay with watchful waiting. We will continue antibiotics, transition to oral, utilize ampicillin and clavulanic acid in this setting. We will monitor and see her back in 2 weeks. We will discuss with Dr. Roman. <ELECTRONICALLY SIGNED> By: George Raza MD 08/26/19 1131 1038 1227Jochepe Raza MD /nt
== END 2019-08-25 15:04 | disposition home or self-care (01) ==
LOC: M.ERS 16:01 → M.2W 19:06 → M.TBA-ER 19:06 → M.2W 19:06
PROVIDERS: Nurse Practitioner Family; ADMIT Internal Medicine
DX: R10.11 Right upper quadrant pain (principal); R10.12 Left upper quadrant pain; F90.9 Attention-deficit hyperactivity disorder, unspecified type; F32.9 Major depressive disorder, single episode, unspecified; F41.0 Panic disorder [episodic paroxysmal anxiety]; L02.211 Cutaneous abscess of abdominal wall; D47.3 Essential (hemorrhagic) thrombocythemia; F10.20 Alcohol dependence, uncomplicated; F19.10 Other psychoactive substance abuse, uncomplicated; F17.200 Nicotine dependence, unspecified, uncomplicated

== ENCOUNTER 2019-11-23 09:21 | Emergency (ER) | payer OTHER ==
[~2019-11-23] VITALS: Ht 157.5 cm; Wt 71.2 kg
[2019-11-23] MEDS ORDERED: ADDERALL 30 MG30 MG PO (09:26)
[2019-11-23] MEDS ORDERED: KLOR-CON 10 ER10 MEQ PO (09:27)
[2019-11-23] MEDS ORDERED: POTASSIUM (09:27)
[2019-11-23 10:03] LABS: ABSOLUTE BASOPHILS 0.1 thou/uL (0.0-0.2); ABSOLUTE EOSINOPHILS 0.5 thou/uL (0.0-0.7); ABSOLUTE LYMPHOCYTES 1.8 thou/uL (0.8-5.3); ABSOLUTE MONOCYTES 0.5 thou/uL (0.0-1.2); ABSOLUTE NEUTROPHILS 7.7 thou/uL (1.6-8.1); BASOPHILS 0.7 %; HEMATOCRIT 40.4 % (37.0-47.0); HEMOGLOBIN 13.5 gm/dL (12.0-15.0); LYMPHOCYTES 16.9 %; MCH 30.2 pg (26.0-34.0); MCHC 33.5 g/dL (28.0-37.0); MCV 90.2 fL (80.0-100.0); MONOCYTES 4.8 %; MPV 7.6 fl. (7.2-11.1); NUCLEATED RBCS 0 /100WBC; PLATELET COUNT* 385 thou/uL (150-400); POLYS 72.6 %; RBC 4.47 mil/uL (4.20-5.00); RDW-CV 15.8 % (10.5-14.5); WBC 10.7 thou/uL (4.0-11.0)
[2019-11-23 10:03] LABS: URINE BILIRUBIN NEGATIVE (Negative); URINE BLOOD NEGATIVE (Negative); URINE CLARITY CLEAR; URINE COLOR YELLOW; URINE GLUCOSE-RANDOM NEGATIVE (Negative); URINE KETONES NEGATIVE (Negative); URINE LEUKOCYTES-REFLEX NEGATIVE (Negative); URINE NITRITE-REFLEX NEGATIVE (Negative); URINE PROTEIN NEGATIVE (Negative); URINE SPECIFIC GRAVITY 1.025 (1.005-1.030); URINE UROBILINOGEN 0.2 E.U./dl (0.2-1.0)
[2019-11-23 10:07] LABS: CALCIUM 8.9 mg/dL (8.5-10.1); CREATININE 0.8 mg/dL (0.6-1.3); POTASSIUM 3.5 mmol/L (3.5-5.1)
[2019-11-23 10:11] LABS: ALBUMIN 3.8 g/dL (3.4-5.0); MAGNESIUM 2.1 mg/dL (1.8-2.4); TOTAL BILIRUBIN 0.4 mg/dL (<0.1-1.0); TOTAL PROTEIN 7.2 g/dL (6.4-8.2)
[2019-11-23 10:11] LABS: BE -2.7 mmol/L (-2 to +3); PCO2 34.6 mmHg (35.0-45.0); PO2 102.9 mmHg (75.0-100.0); pH 7.408 (7.340-7.450)
[2019-11-23 10:30] LABS: AMP/METHAMP POSITIVE (Negative); BARBITURATES Negative (Negative); BENZODIAZEPINES POSITIVE (Negative); COCAINE Negative (Negative); METHADONE Negative (Negative); OPIATES Negative (Negative); PCP Negative (Negative); THC Negative (Negative)
[2019-11-23 12:10] VITALS: BP 153/104
--- NOTE | 2019-11-23 17:07 | EKG ---
[place] [address] ELECTROCARDIOGRAM REPORT Name: TRACY SANDOVAL Room: [facility]#: [id number] Admission: 11/23/19 Attend Phys: Discharge: 11/23/19 Date of : 74 Date of Service: 11/23/19 0925 Report #: [id number] THIS REPORT FOR: //name// [facility] ED Test Date: 2019-11-23 Test Time: 09:25:05 Pat Name: TRACY SANDOVAL Department: Room: Gender: Lead Customer Service Representative: : 1970 Requested By: Alexa Walters Order Number: [id number] Jeane MD: Michoacano Dumont Measurements Intervals [place] Rate: 73 P: 69 [place]: 145 QRS: 38 QRSD: 90 T: 60 QT: 394 QTc: 435 Interpretive Statements Sinus rhythm Probable left atrial enlargement septal infarct, age indeterminate Compared to ECG 08/24/2019 19:29:44 Myocardial infarct finding now present Electronically Signed On 11-23-2019 17:06:49 CDT by Michoacano Dumont [email or web address] <ELECTRONICALLY SIGNED> By: Michoacano Dumont MD, [facility] 11/23/19 1706 0925 0925 Michoacano Dumont MD, [facility] /EPI
== END 2019-11-23 12:14 | disposition left against medical advice (07) ==
LOC: M.ERS 09:21
PROVIDERS: Personal Emergency Response Attendant
DX: R41.0 Disorientation, unspecified (principal); F13.10 Sedative, hypnotic or anxiolytic abuse, uncomplicated; F41.9 Anxiety disorder, unspecified; F32.9 Major depressive disorder, single episode, unspecified; F17.210 Nicotine dependence, cigarettes, uncomplicated; Z88.6 Allergy status to analgesic agent; Z88.8 Allergy status to other drugs, medicaments and biological substances; Z85.3 Personal history of malignant neoplasm of breast; Z86.14 Personal history of Methicillin resistant Staphylococcus aureus infection; Z98.890 Other specified postprocedural states